=== PATIENT | female | born 1975 | race Native Hawaiian/Other Pacific Islander ===

== ENCOUNTER 2016-10-02 22:45 | Emergency (ER) | payer SELFPAY ==
--- NOTE | 2016-10-02 23:12 | Emergency Department Report ---
HPI - General Time Seen by Provider: 10/02/16 23:03 - HPI HPI: Room 3 The patient is a 41-year-old female presenting with a chief complaint of weakness. The patient states she was not feeling well all day and describes weakness in her shoulders and her abdomen. Family states that approximately 20: 00 or 21:00 the patient exhibited difficulty speaking. Location: [see above] Duration: [see above] Quality: Dysarthria Severity: [see above] Modifying factors: [see above] Context: [see above] Mode of transportation: [not driving] ED Past Medical Hx - Past Medical History Additional medical history: TIA - Surgical History Past Surgical History?: No - Family History Family history: no significant - Social History Smoking Status: Never Smoker Substance Use Type: None - Medications Home Medications: Home Medications Medication Instructions Recorded Confirmed Last Taken Type No Known Home Medications [No 10/02/16 10/02/16 Unknown History Reported Home Medications] ED Review of Systems ROS: Stated complaint: AMS/POSS STOKE Other details as noted in HPI Comment: All other systems reviewed and negative Constitutional: weakness Eyes: denies: eye pain, eye discharge, vision change ENT: denies: ear pain, throat pain Respiratory: denies: cough, shortness of breath, wheezing Cardiovascular: denies: chest pain, palpitations Endocrine: no symptoms reported Gastrointestinal: denies: abdominal pain, nausea, diarrhea Genitourinary: denies: urgency, dysuria, discharge Musculoskeletal: denies: back pain, joint swelling, arthralgia Skin: denies: rash, lesions Neurological: weakness, other (dysarthria) Psychiatric: denies: anxiety, depression Hematological/Lymphatic: denies: easy bleeding, easy bruising Physical Exam - Physical Exam Physical Exam: GENERAL: The patient is well-developed well-nourished female appearing lethargic lying on stretcher. [] HEENT: Normocephalic. Atraumatic. Extraocular motions are intact. Patient has moist mucous membranes. NECK: Supple. Trachea midline CHEST/LUNGS: Clear to auscultation. There is no respiratory distress noted. HEART/CARDIOVASCULAR: Regular. There is no tachycardia. There is no gallop rub or murmur. ABDOMEN: Abdomen is soft, nontender. Patient has normal bowel sounds. There is no abdominal distention. SKIN: There is no rash. There is no edema. There is no diaphoresis. NEURO: The patient is awake, alert, and oriented. The patient is cooperative. Cranial nerves II through XII grossly intact (however when the patient is asked to smile she frowns and shows her teeth. The frown is symmetric). The patient has difficulty forming some of her words. Patient is able to move all 4 extremities but only after expending considerable energy MUSCULOSKELETAL: There is no evidence of acute injury. ED Course - Consultations Consultation #1: 10/02/16 23:09 Neurology paged 10/02/16 23:[address] Vidal-will evaluate the patient 10/02/16 23:57 Case discussed with neurologist-social for TPA with the patient refuses. Recommends CTA brain and neck and if negative admit the patient for routine CVA workup ED Medical Decision Making - Lab Data Result diagrams: 10/02/16 23:00 10/02/16 23:00 Laboratory Tests 10/02/16 10/02/16 10/02/16 23:00 23:00 23:00 WBC 11.4 H RBC 4.64 Hgb 11.5 Hct 35.9 MCV 77 L MCH 25 L MCHC 32 RDW 15.0 Plt Count 319 Lymph % (Auto) 13.7 [place] % (Auto) 6.8 Eos % (Auto) 1.5 Baso % (Auto) 0.3 Lymph # 1.6 [place] # 0.8 Eos # 0.2 Baso # 0.0 Seg Neutrophils % 77.7 H Seg Neutrophils # 8.9 H PT 13.5 INR 1.04 APTT 28.6 Sodium 138 Potassium 3.9 Chloride 102.8 Carbon Dioxide 23 Anion Gap 16 BUN 10 Creatinine 0.5 L Estimated GFR > 60 BUN/Creatinine Ratio 20.00 Glucose 104 H POC Glucose Calcium 8.6 Magnesium Total Creatine Kinase 45 CK-MB (CK-2) < 1.0 CK-MB (CK-2) Rel Index 2.2 Troponin T < 0.010 TSH Free T4 HCG, Qual 10/02/16 10/02/16 10/02/16 23:00 23:00 23:17 WBC RBC Hgb Hct MCV MCH MCHC RDW Plt Count Lymph % (Auto) [place] % (Auto) Eos % (Auto) Baso % (Auto) Lymph # [place] # Eos # Baso # Seg Neutrophils % Seg Neutrophils # PT INR APTT Sodium Potassium Chloride Carbon Dioxide Anion Gap BUN Creatinine Estimated GFR BUN/Creatinine Ratio Glucose POC Glucose Calcium Magnesium 2.10 Total Creatine Kinase CK-MB (CK-2) CK-MB (CK-2) Rel Index Troponin T TSH 2.600 Free T4 1.02 HCG, Qual Negative 10/02/16 23:47 WBC RBC Hgb Hct MCV MCH MCHC RDW Plt Count Lymph % (Auto) [place] % (Auto) Eos % (Auto) Baso % (Auto) Lymph # [place] # Eos # Baso # Seg Neutrophils % Seg Neutrophils # PT INR APTT Sodium Potassium Chloride Carbon Dioxide Anion Gap BUN Creatinine Estimated GFR BUN/Creatinine Ratio Glucose POC Glucose 111 H Calcium Magnesium Total Creatine Kinase CK-MB (CK-2) CK-MB (CK-2) Rel Index Troponin T TSH Free T4 HCG, Qual - EKG Data -: EKG Interpreted by Me EKG shows normal: sinus rhythm Rate: normal - EKG Data When compared to previous EKG there are: previous EKG unavailable Interpretation: normal EKG, other - Radiology Data Radiology results: report reviewed (CT head, CT angiogram head, CT angio neck), image reviewed (CT head, CT angiogram head, CT angio neck) CT head (read by radiologist)-examination CT angiogram neck (read by radiologist)-there is no carotid stenosis, thrombosis or dissection. The vertebral arteries are patent CT angiogram head (read by radiologist)-there is no large cranial arterial stenosis, thrombosis, dissection or aneurysm. There is no vascular malformation. The dural sinuses are patent. - Differential Diagnosis CVA, hypomagnesemia, hypocalcemia, hypothyroidism, malingering Critical care attestation.: If time is entered above; I have spent that time in minutes in the direct care of this critically ill patient, excluding procedure time. ED Disposition Clinical Impression: Altered mental status, Dysarthria Disposition: OP ADMITTED IP TO THIS HOSP Is pt being admited?: Yes Does the pt Need Aspirin: Yes Condition: Fair Referrals: PRIMARY CARE, [Primary Care Provider] - 3-5 Days Time of Disposition: 03:56 (hospitalist paged)
[2016-10-02 23:13] LABS: Basophils % (Auto) 0.3 % (0.0-1.8); Eosinophils % (Auto) 1.5 % (0.0-4.3); Hematocrit 35.9 % (30.3-42.9); Hemoglobin 11.5 gm/dl (10.1-14.3); Mean Corpuscular HGB Conc 32 % (30-34); Mean Corpuscular Volume 77 fl (79-97); Platelet Count 319 K/mm3 (140-440); Red Blood Count 4.64 M/mm3 (3.65-5.03); White Blood Count 11.4 K/mm3 (4.5-11.0)
[2016-10-02 23:14] LABS: Mean Corpuscular Hemoglobin 25 pg (28-32)
[2016-10-02 23:22] LABS: INR 1.04 (0.87-1.13)
[2016-10-02 23:23] LABS: Partial Thromboplastin Time 28.6 Sec. (24.2-36.6)
[2016-10-02 23:30] LABS: Anion Gap 16 mmol/L; Blood Urea Nitrogen 10 mg/dL (7-17); Calcium 8.6 mg/dL (8.4-10.2); Carbon Dioxide 23 mmol/L (22-30); Chloride 102.8 mmol/L (98-107); Creatine Kinase 45 units/L (30-135); Glucose 104 mg/dL (65-100); Potassium 3.9 mmol/L (3.6-5.0); Sodium 138 mmol/L (137-145)
[2016-10-02 23:32] LABS: Creatine Kinase MB < 1.0 ng/mL (0.0-4.0)
--- NOTE | 2016-10-02 23:41 | Cat Scan Report ---
FINAL REPORT PROCEDURE: CT HEAD/BRAIN WO CON TECHNIQUE: Computerized tomography of the head was performed without contrast material. HISTORY: dysarthria COMPARISON: No prior studies are available for comparison. FINDINGS: Skull and scalp: Normal. Paranasal sinuses: Normal. Ventricles and subarachnoid spaces: Normal. Cerebrum: No evidence of hemorrhage, acute infarction or mass . Cerebellum and brainstem: No evidence of hemorrhage, acute infarction or mass. Vasculature: Normal. Comments: None. IMPRESSION: Normal Examination
[2016-10-02] MEDS ORDERED: ASPIRIN PO ONE (23:57)
[2016-10-03] MEDS ORDERED: NACL ONE (00:29)
[2016-10-03 01:51] VITALS: BP 119/67
--- NOTE | 2016-10-03 02:53 | Cat Scan Report ---
FINAL REPORT PROCEDURE: CT ANGIO NECK TECHNIQUE: Computerized tomographic angiography of the neck was performed after the IV injection of iodinated nonionic contrast including image processing. The image data was postprocessed using 2-dimensional multiplanar reformatted (MPR) and 3-dimensional (MIP and/or volume rendered) techniques. HISTORY: weakness, dysarthria COMPARISON: No prior studies are available for comparison. Note: Assessment of carotid artery stenosis is based on measurement of the distal internal carotid artery diameter as the denominator for stenosis calculations and the [place] Symptomatic Carotid Endarterectomy Trial (NASCET) stenosis criteria . CPT 3100F FINDINGS: Sinuses: Normal . Non vascular cervical structures: No significant abnormality . Aortic arch: Normal . Right carotid artery: Normal . Left carotid artery: Normal . Vertebral arteries: Normal . IMPRESSION: There is no carotid stenosis, thrombosis or dissection. The vertebral arteries are patent.
--- NOTE | 2016-10-05 07:59 | Cat Scan Report ---
FINAL REPORT PROCEDURE: CT ANGIO HEAD TECHNIQUE: Computerized tomographic angiography of the head was performed after the IV injection of iodinated nonionic contrast including image processing. The image data was postprocessed using 2-dimensional multiplanar reformatted (MPR) and 3-dimensional (MIP and/or volume rendered) techniques. HISTORY: weakness, dysarthria COMPARISON: No prior studies are available for comparison. FINDINGS: Cerebrum: No evidence of hemorrhage, acute ischemia or mass. Cerebellum: No evidence of hemorrhage, acute ischemia or mass. Subarachnoid spaces and ventricles: Normal. Intracranial vessels: Carotid siphon: Normal. Anterior cerebral: Normal. Middle cerebral: Normal. Posterior cerebral:Normal. Vertebral arteries including basilar: Normal. Aneurysms: None. Dural sinuses: Normal. IMPRESSION: There is no intracranial arterial stenosis, thrombosis, dissection or aneurysm. There is no vascular malformation. The dural sinuses are patent.
== END 2016-10-03 05:03 | disposition admitted as inpatient to this hospital (09) ==
LOC: ED 22:45
DX: R41.82 Altered mental status, unspecified (principal); R47.1 Dysarthria and anarthria; Z86.73 Personal history of transient ischemic attack (TIA), and cerebral infarction without residual deficits
CPT/HCPCS: 36415; 70450; 70496; 70498; 80048; 82550; 82553; 82962; 83735; 84439; 84443; 84484; 84703; 85025; 85610; 85730; 93005; 93010; 99285; Q9967

== ENCOUNTER 2018-08-20 12:51 | Outpatient (CLI) | payer MEDICAID ==
[2018-08-20 14:32] LABS: Bilirubin,Urine NEG (Negative); Blood,Urine NEG (Negative); Color,Urine Yellow (Yellow); Mucus,Urine 2+ /HPF; Urobilinogen,Urine < 2.0 mg/dL (<2.0)
[2018-08-20 14:39] LABS: Amphetamine Screen,Urine PRESUMPTIVE NEGATIVE; Benzodiazepines Screen,Urine PRESUMPTIVE NEGATIVE; Cannabinoid Screen,Urine PRESUMPTIVE NEGATIVE; Cocaine Screen,Urine PRESUMPTIVE NEGATIVE; Methadone Screen,Urine PRESUMPTIVE NEGATIVE; Opiate Screen,Urine PRESUMPTIVE NEGATIVE
--- NOTE | 2018-08-20 18:03 | Ultrasound Report ---
PROCEDURE: US OB LIMITED TECHNIQUE: Transabdominal limited OB ultrasound HISTORY: Abdominal pain S/P fall; COMPARISONS: None FINDINGS: heart rate is 152 bpm. The placenta is anterior and demonstrates no abruption or previa. Amniotic fluid volume is within normal limits. Fetus in breech presentation. IMPRESSION: No placental abruption or previa.. This document is electronically signed by Salvador Vega MD., August 20 2018 06:00:01 PM ET
[2018-08-20 20:25] VITALS: BP 123/60
--- NOTE | 2018-08-20 21:00 | Progress Note ---
Assessment and Plan A: at 25 weeks, 1 day gestation. S/P fall in yard onto knees and right side. P: Monitored patient for 6 hours; no contractions or uterine irritability. Ultrasound done; no signs of abruption noted. KB test negative. UDS and UA negative. Consulted with Dr. Cisneros re: this patient; Dr. Cisneros states it is OK to discharge patient home. Patient declines to go to ED. Discussed with patient warning signs, need to follow up at [facility] this week. Subjective - Subjective Date of service: 08/20/18 Principal diagnosis: at 25 weeks, 1 day gestation; fell in yard Interval history: 42 year old presents at 25 weeks, 1 day gestation stating she fell in the year this morning, tripped over something in the yard, fell onto her knees and then onto her right side. She denies hitting her head or her abdomen. Patient reports active movement. Patient denies contractions, vaginal bleeding, or leaking of fluid. She denies constant abdominal pain. She denies any bruising or injury. She states she can move all extremities well. Patient receives care at [facility]. Patient reports: movement normal, no loss of fluid, no vaginal bleeding, no contractions Objective - Vital Signs Vital Signs: Vital Signs - 12hr 08/20/18 08/20/18 08/20/18 13:07 13:26 14:57 Temperature 98.2 F Pulse Rate 103 H 98 H Respiratory 16 Rate Blood Pressure 114/75 90/54 Blood Pressure [Left] 08/20/18 08/20/18 08/20/18 15:57 16:58 17:57 Temperature Pulse Rate 100 H 101 H 108 H Respiratory Rate Blood Pressure 88/53 102/57 105/67 Blood Pressure [Left] 08/20/18 08/20/18 08/20/18 18:57 19:57 20:24 Temperature Pulse Rate 100 H 100 H 106 H Respiratory Rate Blood Pressure 91/50 94/47 Blood Pressure 123/60 [Left] - Exam Abdomen: Present: normal appearance, soft. Absent: distention, tenderness, guarding, rigidity Uterus: Present: normal, fundal height above umbilicus. Absent: tenderness FHR: other (appropriate for gestational age) Uterine Contraction Monitor Mode: External Uterine Contraction Pattern: Absent Extremities: normal - Labs Labs: Laboratory Results - last 24 hr 08/20/18 08/20/18 08/20/18 13:50 13:50 13:55 Urine Color Yellow Urine Turbidity Slightly-cloudy Urine pH 6.0 Ur Specific [place] 1.023 Urine Protein 30 mg/dl Urine Glucose (UA) Neg Urine Ketones 20 Urine Blood Neg Urine Nitrite Neg Urine Bilirubin Neg Urine Urobilinogen < 2.0 Ur Leukocyte Esterase Neg Urine WBC (Auto) 3.0 Urine RBC (Auto) 2.0 U Epithel Cells (Auto) 5.0 Urine Mucus 2+ Urine Opiates Screen Presumptive negative Urine Methadone Screen Presumptive negative Ur Barbiturates Screen Presumptive negative Ur Phencyclidine Scrn Presumptive negative Ur Amphetamines Screen Presumptive negative U Benzodiazepines Scrn Presumptive negative Urine Cocaine Screen Presumptive negative U Marijuana (THC) Screen Presumptive negative Drugs of Abuse Note Disclamer KB % Cells Negative
== END 2018-08-20 20:10 | disposition home or self-care (01) ==
LOC: TRG 12:51
PROVIDERS: ATTEND Obstetrics & Gynecology
DX: O47.03 False labor before 37 completed weeks of gestation, third trimester (principal); Z3A.28 28 weeks gestation of pregnancy
CPT/HCPCS: 59025; 76815; 80307; 81001; 85460

== ENCOUNTER 2018-11-18 13:37 | Inpatient (IN) | payer MEDICAID ==
[2018-11-18] MEDS ORDERED: D50W (25GM) Syringe IV PRN (13:44)
[2018-11-18] MEDS ORDERED: MINERAL OIL PO PRN (13:50)
[2018-11-18] MEDS ORDERED: SUBLIMAZE IV PRN (13:50)
[2018-11-18] MEDS ORDERED: XYLOCAINE 2% INFILTRATI ONE (13:50)
[2018-11-18] MEDS ORDERED: STADOL IV PRN (13:50)
[2018-11-18] MEDS ORDERED: BRETHINE SUB-Q PRN (13:50)
[2018-11-18] MEDS ORDERED: ZOFRAN IV PRN (13:50)
[2018-11-18] MEDS ORDERED: CERVIDIL VG ONE (14:00)
[2018-11-18] MEDS ORDERED: LACTATED RINGERS 1,000 ML IV SCH (14:00)
--- NOTE | 2018-11-18 14:03 | History and Physical Report ---
History of Present Illness Date of examination: 11/18/18 Date of admission: 11/18/18 13:37 Chief complaint: Induction of labor secondary to IDGDM with uncontrolled blood sugars History of present illness: 43 yo, @ 38 wks gestation,, pt of [facility] who initiated care at 9 wks 3 days gestation. Her has been complicated by AMA, obesity, anemia and IDGDM. She has been co-managed with [facility]. She was sent to [facility] from office today for induction of labor secondary to uncontrolled blood glucose results on insulin TID. Labs:O+, antibody negative; Rubella immune; VDRL negative; HBaAg negative; HIV negative; Gc/Chlamydia negative; Hgb A1c- 5.3; 1 hr Gtt: 181; 3 hr gtt: 91, 206, 174, 158; GBS negative. Past History Past Medical History: other (GDM (2001, 2008)) Past Surgical History: no surgical history Family/Genetic History: none Social history: single, lives with family, full code. denies: smoking, alcohol abuse, prescription drug abuse, IV drug use - Obstetrical History Expected Date of Delivery: 11/28/18 Actual Gestation: 38 Week(s) 4 Day(s) : 7 Para: 5 Hx # Term Pregnancies: 5 Number of Pregnancies: 0 Spontaneous Abortions: 1 Induced : 0 Number of Living Children: 5 #1 Infant Gender: Female year: 1,996 Method of Delivery: Vaginal Gestational age at delivery: 40 Complications: none #2 Infant Gender: Male year: 1,999 Method of Delivery: Vaginal Gestational age at delivery: 40 Complications: none #3 Infant Gender: Male year: 2,000 Method of Delivery: Vaginal Gestational age at delivery: 40 Complications: none #4 Gender: Male year: 2,002 Method of Delivery: Vaginal Gestational age at delivery: 40 Complications: none #5 Gender: Female year: 2,002 Method of Delivery: Vaginal Gestational age at delivery: 40 Complications: none Medications and Allergies Allergies Allergy/AdvReac Type Severity Reaction Status Date / Time No Known Allergies Allergy Verified 08/20/18 12:54 Home Medications Medication Instructions Recorded Confirmed Last Taken Type Ergocalciferol (Vitamin D2) 2,000 units PO DAILY 08/20/18 08/20/18 08/20/18 History Ferrous Sulfate 1 tab PO DAILY 08/20/18 08/20/18 08/20/18 History Pnv Plus Multivit Tab 1 tab PO DAILY 08/20/18 08/20/18 08/19/18 History Active Meds: Active Medications Ephedrine Sulfate (Ephedrine Sulfate) 10 mg IV Q2M PRN PRN Reason: Hypotension Mineral Oil (Mineral Oil) 30 ml PO QHS PRN PRN Reason: Constipation Terbutaline Sulfate (Brethine) 0.25 mg SUB-Q ONCE PRN PRN Reason: Hyperstimulation/Hypertonicity Review of Systems All systems: negative - Physical Exam Breasts: Positive: deferred Cardiovascular: Regular rate Lungs: Positive: Normal air movement Abdomen: Positive: other (gravid) Genitourinary (Female): Positive: normal external genitalia Vagina: Positive: normal moisture Uterus: Positive: enlarged (S>D) Extremities: Positive: normal Deep Tendon Reflex Grade: Normal +2 - Obstetrical FHR: category 1 Uterine Contraction Monitor Mode: External Cervical Dilatation: 1 Cervical Effacement Percentage: 60 station: -3 Uterine Contraction Pattern: Irregular Uterine Tone Measurement Phase: Resting Uterine Contraction Intensity: Mild Results All other labs normal. Assessment and Plan - Patient Problems (1) Encounter for induction of labor Current Visit: Yes Status: Acute Plan to address problem: Admit to labor and delivery Cervidil induction Pain meds as desired Anticipate (2) Gestational diabetes mellitus (GDM) affecting Current Visit: Yes Status: Acute Plan to address problem: Moderate Sliding scale blood glucose orders (3) Advanced maternal age (AMA), 40 years or greater Current Visit: Yes Status: Acute (4) Obesity affecting Current Visit: Yes Status: Acute (5) Anemia affecting Current Visit: Yes Status: Acute Plan to address problem: Resume po iron supplementation PP
[2018-11-18] MEDS ORDERED: HumuLIN R SUB-Q SCH (15:00)
[2018-11-18] MEDS ORDERED: NACL 0.9% 1000 ML 1,000 ML IV SCH (15:00)
[2018-11-18 16:00] LABS: Hematocrit 34.1 % (30.3-42.9); Hemoglobin 11.8 gm/dl (10.1-14.3); Mean Corpuscular HGB Conc 35 % (30-34); Mean Corpuscular Volume 82 fl (79-97); Platelet Count 253 K/mm3 (140-440); Red Blood Count 4.17 M/mm3 (3.65-5.03)
--- NOTE | 2018-11-18 17:08 | Ultrasound Report ---
PROCEDURE: US OB FOLLOW UP TECHNIQUE: Ultrasound obstetrical HISTORY: For size COMPARISONS: August 20, 2018 FINDINGS: Single alive intrauterine gestation present in cephalic presentation Placenta is anterior and right lateral cardiac activity present heart rate 1 49 bpm biometric measurements were obtained Biparietal diameter 37 weeks 2 days History this 38 weeks 5 days Femoral circumference 30 weeks 0 days Femur length 38 weeks 1 day Based on today's exam Is a gestational age 30 weeks 0 days. Clinical age is 38 weeks 0 days Estimated date of delivery is December 02, 2018 Estimated weight today is 3374 g 7 lbs. 7 oz. Amniotic fluid index is 7.4 cm IMPRESSION: Estimated weight 3374 g, 7 lbs. 7 oz. Single live intrauterine gestation in cephalic presentation. This document is electronically signed by Benny Ayers MD., November 18 2018 05:06:55 PM ET
[2018-11-19] MEDS: PITOCin/NS 20 UNIT/1000ML DRIP 20 UNITS/1,000 ML BAG IV SCH ×2 (08:18→09:07)
--- NOTE | 2018-11-19 08:32 | Procedure Note ---
OB Delivery Note - Delivery Date of Delivery: 11/19/18 Flat Polisher: FRANNY LIANG (asked by RN to step in) Estimated blood loss: other (400cc) - Vaginal Delivery presentation: vertex Delivery position: OA Intrapartum events: labor-<37 weeks, meconium, other(please specify) (GDM) Delivery monitor: external FHT, external uterine Route of delivery: Delivery placenta: spontaneous Delivery cord: 3 umbilical vessels Episiotomy: none Delivery laceration: none Anesthesia: none Delivery comments: Requested by Charge nurse to go to LDR 7 for delivery Her provider is 30 min out female over intact perineum Cord clamped and cut Baby passed to waiting NICU team, meconium. Cord blood obtained Placenta and membrane delivered complete and intact, 3 vessel cord. Pitocin IVFs. Placenta to pathology. 8/9, EBL 400, Wgt 7-5 Mom and baby remain LDR stable. notified by CN that pt has delivered. - Infant A at 1 minute: 8 at 5 minutes: 9 Gender: Female (wgt 7-5)
[2018-11-19] MEDS: IBUPROFEN PO PRN (08:39)
[2018-11-19] MEDS ORDERED: BENADRYL PO PRN (09:00)
[2018-11-19] MEDS ORDERED: SODIUM CHLORIDE FLUSH SYRINGE 10 ML IV NR (09:00)
[2018-11-19] MEDS ORDERED: TUCKS PAD TP PRN (09:00)
[2018-11-19] MEDS ORDERED: LANSINOH TP PRN (09:00)
[2018-11-19] MEDS ORDERED: DULCOLAX PR PRN (09:00)
[2018-11-19] MEDS ORDERED: ZOFRAN IV PRN (09:00)
[2018-11-19] MEDS ORDERED: PHENERGAN PR PRN (09:00)
[2018-11-19] MEDS ORDERED: TYLENOL PO PRN (09:00)
[2018-11-19] MEDS ORDERED: PHENERGAN PO PRN (09:00)
[2018-11-19] MEDS: NORCO 5/325 PO PRN (13:10)
[2018-11-19 19:58] LABS: Hematocrit 29.8 % (30.3-42.9); Hemoglobin 9.9 gm/dl (10.1-14.3)
[2018-11-19] MEDS ORDERED: MILK OF MAGNESIA PO PRN (22:00)
[2018-11-20] MEDS: IBUPROFEN PO PRN ×2 (07:24→12:24)
--- NOTE | 2018-11-20 11:16 | Progress Note ---
Assessment and Plan A: day 1 S/P spontaneous vaginal delivery. Anemia secondary to and blood loss. Gestational diabetes during that required insulin. P: Supplement with oral iron. Encouraged patient to ambulate. Subjective - Subjective Date of service: 11/20/18 Principal diagnosis: day 1 S/P spontaneous vaginal delivery Interval history: day 1 S/P spontaneous vaginal delivery. Gestational diabetes during that required insulin. Patient is doing well. She reports a small amount of lochia. Patient is voiding without difficulty, tolerating a regular diet, passing gas, and ambulating well. Patient denies headache, chest pain, shortness of breath, cough, dizziness, nausea or vomiting, abdominal or epigastric pain, leg pain, heavy vaginal bleeding, or any other symptoms. Patient reports: appetite normal, voiding normally, pain well controlled, flatus, ambulating normally, no dizzy ambulation, no nauseated : doing well Objective - Vital Signs Latest vital signs: Vital Signs Temp Pulse Resp BP BP Pulse Ox 11/20/18 08:14 98.6 F 74 20 107/41 96 11/20/18 00:06 98.5 F 83 20 91/48 96 11/19/18 16:23 97.9 F 71 18 100/45 95 11/19/18 11:55 98.1 F 68 20 96/48 99 Intake and Output 11/19/18 11/20/18 11/20/18 23:59 07:59 15:59 Intake Total 240 200 Output Total 1000 800 Balance -760 -800 200 Intake: Oral 240 200 Output: Urine 1000 800 Void 1000 800 Other: Total, Intake Amount 240 200 Total, Output Amount 600 800 # Voids Void 2 3 1 - Exam Abdomen: Present: normal appearance, soft, normal bowel sounds. Absent: distention, tenderness, guarding, rigidity Uterus: Present: normal, firm, fundal height below umbilicus. Absent: bogginess, tenderness Extremities: Present: normal. Absent: tenderness, edema - Labs Labs: Abnormal lab results 11/19/18 Range/Units 19:14 Hgb 9.9 L (10.1-14.3) gm/dl Hct 29.8 L (30.3-42.9) %
[2018-11-20] MEDS: FEOSOL PO SCH (12:24)
[2018-11-20] MEDS: NORCO 5/325 PO PRN (20:19)
[2018-11-21] MEDS: IBUPROFEN PO PRN (00:05)
[2018-11-21] MEDS: FEOSOL PO SCH ×2 (00:05→10:45)
--- NOTE | 2018-11-21 10:25 | Progress Note ---
Assessment and Plan - Patient Problems (1) Gestational diabetes mellitus (GDM) affecting Current Visit: Yes Status: Acute Plan to address problem: Co-managed with Dr. Chavez Consult with physician regarding medication management for d/c plan (2) Advanced maternal age (AMA), 40 years or greater Current Visit: Yes Status: Acute (3) Obesity affecting Current Visit: Yes Status: Acute (4) Anemia affecting Current Visit: Yes Status: Acute Plan to address problem: Continue po iron supplementation (5) (normal spontaneous vaginal delivery) Current Visit: Yes Status: Acute Plan to address problem: Continue routine PP orders Anticipate d/c home within 24 hours pending consultation with physician regarding DM medication management Subjective - Subjective Date of service: 11/21/18 Principal diagnosis: day 2 S/P spontaneous vaginal delivery Interval history: See admission H & P, OB delivery summary and PP progress notes Patient reports: appetite normal, voiding normally, pain well controlled, flatus, bowel movement, ambulating normally Wayne: doing well, bottle feeding (and breasfeeding) Objective - Vital Signs Latest vital signs: Vital Signs Temp Pulse Resp BP BP Pulse Ox 11/21/18 08:55 98.1 F 78 20 107/53 11/21/18 01:05 18 11/21/18 00:05 18 11/20/18 23:32 98.3 F 69 18 117/59 96 11/20/18 21:19 18 11/20/18 20:19 18 11/20/18 15:47 98.2 F 89 16 113/61 93 Intake and Output 11/20/18 11/21/18 11/21/18 23:59 07:59 15:59 Intake Total 480 240 240 Balance 480 240 240 Intake: Oral 240 240 Intake, Free Water 240 240 Other: Total, Intake Amount 240 240 # Voids Void 1 1 1 - Exam Breasts: Present: normal Cardiovascular: Present: Regular rate Lungs: Present: Normal air movement Abdomen: Present: soft, normal bowel sounds Uterus: Present: firm, fundal height below umbilicus (U-2) Extremities: Present: normal Deep Tendon Reflex Grade: Normal +2
--- NOTE | 2018-11-21 11:17 | Discharge Summary ---
Providers - Providers Date of Admission: 11/18/18 13:37 Date of discharge: 11/21/18 (1200) Attending physician: ALEXANDRA BAUM MD Primary care physician: ALEXANDRA BAUM MD Hospitalization Reason for admission: induction of labor (secondary to GDM with insulin TID) Delivery: Episiotomy: none Laceration: none Other procedures: none complications: none Discharge diagnosis: IUP at term delivered baby: female Hospital course: See admission H & P, OB delivery summary and PP progress notes Condition at discharge: Good Disposition: DC-01 TO HOME OR SELFCARE - Discharge Diagnoses (1) Gestational diabetes mellitus (GDM) affecting Status: Acute (2) Advanced maternal age (AMA), 40 years or greater Status: Acute (3) Obesity affecting Status: Acute (4) Anemia affecting Status: Acute (5) (normal spontaneous vaginal delivery) Status: Acute Plan - Provider Discharge Summary Activity: routine, no sex for 6 weeks, no heavy lifting 4 weeks, no strenuous exercise Diet: other (Low fat, Low carbohydrate, low concentrated sugar diet) Instructions: routine Additional instructions: [] Smoking cessation referral if applicable(refer to patient education folder for contact #) [] Refer to [facility]'s [facility] Center Booklet Call your doctor immediately for: * Fever > 100.5 * Heavy vaginal bleeding ( >1 pad per hour) * Severe persistent headache * Shortness of breath * Reddened, hot, painful area to leg or breast * Drainage or odor from incision. * Keep 4 times per day blood glucose log for the next 7 days, and bring with you to 1 week f/u appt at the clinic. - Follow up plan Follow up: ALEXANDRA BAUM MD [Primary Care Provider] - 7 Days
[2018-11-21 14:49] VITALS: BP 108/59
== END 2018-11-21 14:00 | disposition home or self-care (01) | DRG 775 ==
LOC: LD 13:37 → OB 11-19 10:54
PROVIDERS: ADMIT Obstetrics & Gynecology; ATTEND Obstetrics & Gynecology
PROC: 3E0P7VZ Introduction of Hormone into Female Reproductive, Via Natural or Artificial Opening (ICD-10-PCS; 2018-11-18)
PROC: 10E0XZZ Delivery of Products of Conception, External Approach (ICD-10-PCS; principal; 2018-11-19)
DX: O24.424 Gestational diabetes mellitus in childbirth, insulin controlled (principal); O99.02 Anemia complicating childbirth; O99.214 Obesity complicating childbirth; D50.0 Iron deficiency anemia secondary to blood loss (chronic); E66.9 Obesity, unspecified; O77.0 Labor and delivery complicated by meconium in amniotic fluid; Z3A.38 38 weeks gestation of pregnancy; Z37.0 Single live birth
CPT/HCPCS: 36415; 76816; 82962; 83036; 85014; 85018; 85027; 86592; 86850; 86900; 86901; 88307; G0378; J2590; J3010; J7030